=== PATIENT | female | born 1990 | race African-American/Black ===

== ENCOUNTER 2025-11-15 09:37 | Emergency (ER) | payer MEDICAID ==
[~2025-11-15] VITALS: Ht 175.3 cm; Wt 100.0 kg
[2025-11-15 09:39] VITALS: BP 133/84; TEMP 36.7; O2SAT 100
[2025-11-15 09:40] VITALS: PULSE 81; RESP 18; O2SAT 100
== END 2025-11-15 10:10 | disposition home or self-care (01) ==
LOC: ER 10:07
DX: M77.9 Enthesopathy, unspecified (principal); Z98.890 Other specified postprocedural states
CPT/HCPCS: 99283